=== PATIENT | male | born 1960 | race Two or more races ===

== ENCOUNTER 2019-02-22 09:02 | Outpatient (CLI) | payer OTHER | END 2019-02-22 10:17 | disposition home or self-care (01) | LOC: SONOGRAMA 09:02 | DX: R59.9 Enlarged lymph nodes, unspecified (principal) ==

== ENCOUNTER 2023-10-27 10:20 | Outpatient (CLI) | payer OTHER | END 2023-10-27 10:23 | disposition home or self-care (01) | LOC: SONOGRAMA 10:20 | PROVIDERS: ATTEND Pathology Anatomic Pathology | DX: D11.7 Benign neoplasm of other major salivary glands (principal); R59.9 Enlarged lymph nodes, unspecified; C73 Malignant neoplasm of thyroid gland ==